=== PATIENT | male | born 1980 | race Caucasian/White ===

== ENCOUNTER 2021-07-27 10:14 | Observation (INO) ==
[2021-07-27] MEDS ORDERED: Morphine Sulfate 2 MG/ML SYRINGE IVP ONE (10:41)
[2021-07-27 10:47] LABS: Basophils % 0.2 %; Eosinophils % 0.1 %; Hematocrit 46.7 % (37.5-50.1); Hemoglobin 16.1 g/dL (12.9-16.9); Immature Granulocytes % 0.5 % (0-4); Lymphocytes # 1.3 K/mcL (0.6-4.6); Lymphocytes % 7.4 %; Mean Corpuscular HGB Conc 34.5 g/dL (31.6-35.5); Mean Corpuscular Hemoglobin 32.1 pg (28.0-33.3); Mean Corpuscular Volume 93.2 fL (83.0-100.0); Mean Platelet Volume 10.3 fL (9.4-12.4); Monocytes # 0.6 K/mcL (0.0-1.3); Monocytes % 3.6 %; Neutrophils # 15.4 K/mcL (1.6-8.9); Platelet Count 217 K/mcL (140-400); Red Blood Count 5.01 M/mcL (4.19-5.50); Red Cell Distribution Width 12.6 % (11.5-14.5); Segmented Neutrophils % 88.2 %; White Blood Count 17.4 K/mcL (4.3-11.1)
[2021-07-27 11:01] LABS: Alanine Aminotransferase 23 Units/L (7-52); Albumin 4.5 g/dL (3.5-5.7); Albumin/Globulin Ratio 1.7 (1.1-2.2); Alkaline Phosphatase 59 Units/L (34-104); Aspartate Amino Transferase 18 Units/L (13-39); BUN/Creatinine Ratio 14 (6-26); Bilirubin,Total 0.8 mg/dL (0.3-1.0); Blood Urea Nitrogen 14 mg/dL (6-20); Calcium 9.4 mg/dL (8.6-10.3); Carbon Dioxide 27 mEq/L (23-29); Chloride 102 mEq/L (98-107); Globulin 2.6 g/dL (2.4-3.5); Glucose 151 mg/dL (70-105); Lipase 11 Units/L (11-82); Osmolality,Calculated 285 (280-300); Potassium 3.9 mEq/L (3.5-5.1); Sodium 136 mEq/L (136-145); Total Protein 7.1 g/dL (6.4-8.9); eGFR For African Americans > 60 (> 60); eGFR For Non-African Americans > 60 (> 60)
[2021-07-27] MEDS ORDERED: Isovue-370 500 ML BOTTLE IVP ONE (11:05)
[2021-07-27] MEDS ORDERED: *HR* HYDROmorphone 2 MG/ML SYRINGE IVP ONE ×2 (11:27→13:51)
[2021-07-27] MEDS ORDERED: Ringers Solution, Lactated 1,000 ML IVC ONE (13:51)
[2021-07-27] MEDS ORDERED: Piperacillin/Tazobactam 3.375 GM in 0.9 % Sodium Chloride Mini Bag 100 ML IVPB ONE (14:33)
[2021-07-27] MEDS ORDERED: Ketorolac 30 MG/ML VIAL IVP ONE (14:33)
[2021-07-27] MEDS ORDERED: Acetaminophen 325 MG TABLET PO PRN ×2 (15:46→21:13)
[2021-07-27] MEDS ORDERED: Ondansetron 4 MG/2 ML VIAL IVP PRN ×2 (15:46→21:13)
[2021-07-27] MEDS ORDERED: Naloxone 0.4 MG/ML INJ IVP PRN ×2 (15:46→21:13)
[2021-07-27] MEDS ORDERED: Ketorolac 30 MG/ML VIAL IVP PRN ×2 (15:48→21:13)
[2021-07-27] MEDS ORDERED: *HR* OxyCODONE Immed Rel 5 MG TABLET PO PRN ×3 (15:49→21:13)
[2021-07-27] MEDS ORDERED: Morphine Sulfate 2 MG/ML SYRINGE IVP PRN (15:50)
[2021-07-27] MEDS ORDERED: 0.9 % Sodium Chloride w KCl 20 MEQ/1,000 ML MLS IVC SCH (16:00)
[2021-07-27] MEDS ORDERED: *HR* HYDROmorphone PF 0.5 MG/0.5 ML SYRINGE IVP PRN ×2 (18:12→21:13)
[2021-07-27] MEDS ORDERED: Ringers Solution, Lactated 1,000 ML IVC SCH (18:15)
[2021-07-27] MEDS ORDERED: Lidocaine -MPF 2% 2 ML VIAL ONE ×3 (18:44→20:52)
[2021-07-27] MEDS ORDERED: Ondansetron 4 MG/2 ML VIAL ONE (18:44)
[2021-07-27] MEDS ORDERED: *HR* Propofol 200 MG/20 ML VIAL IVP ONE ×2 (18:45→19:20)
[2021-07-27] MEDS ORDERED: *HR* FentaNYL (PF) 100 MCG/2 ML VIAL ONE (18:45)
[2021-07-27] MEDS ORDERED: *HR* Rocuronium Bromide 50 MG/5 ML VIAL ONE (18:53)
[2021-07-27] MEDS ORDERED: *HR* HYDROMORPHONE 2 MG/ML VIAL ONE (19:48)
[2021-07-27] MEDS ORDERED: Acetaminophen IV 1,000 MG/100 ML BAG IVPB ONE (19:55)
[2021-07-27] MEDS: 0.9 % Sodium Chloride w KCl 20 MEQ/1,000 ML MLS IVC SCH (21:27)
[2021-07-27] MEDS: *HR* OxyCODONE Immed Rel 5 MG TABLET PO PRN (21:28)
[2021-07-28] MEDS: 0.9 % Sodium Chloride w KCl 20 MEQ/1,000 ML MLS IVC SCH (06:00)
[2021-07-28] MEDS ORDERED: *HR* Enoxaparin 40 MG/0.4 ML SYRINGE SQ SCH ×2 (06:00)
[2021-07-28] MEDS: *HR* OxyCODONE Immed Rel 5 MG TABLET PO PRN ×2 (06:00→10:10)
[2021-07-28] MEDS ORDERED: Ibuprofen 800 MG TABLET PO ONE (07:23)
[2021-07-28 08:05] VITALS: BP 106/65; PULSE 74; TEMP 97.6; O2SAT 96
== END 2021-07-28 11:15 | disposition home or self-care (01) ==
LOC: EMEROOARM 10:14 → 3ANU 10:14
PROVIDERS: ADMIT Surgery; ATTEND Surgery